=== PATIENT | female | born 1975 | race African-American/Black ===

== ENCOUNTER 2016-03-15 05:32 | Emergency (ER) | payer OTHER, MEDICAID ==
[2016-03-15 06:30] LABS: MEAN CORPUSCULAR HEMOGLOBIN 28.4 pg (27.0-33.0); MEAN CORPUSCULAR HGB CONC 32.5 g/dl (32.0-36.5); MEAN CORPUSCULAR VOLUME 87.3 fl (80.0-96.0); RED CELL DISTRIBUTION WIDTH 13.6 % (11.5-14.5); WHITE BLOOD COUNT 9.7 K/mm3 (4.0-10.0)
[2016-03-15 06:49] LABS: ALBUMIN 3.9 GM/DL (3.2-5.2); ALBUMIN/GLOBULIN RATIO 0.98 (1.00-1.93); ALKALINE PHOSPHATASE 84 U/L (45-117); ALT/SGPT 29 U/L (12-78); ANION GAP 11 MEQ/L (8-16); AST/SGOT 15 U/L (15-37); BILIRUBIN,DIRECT < 0.1 MG/DL (0.0-0.2); BILIRUBIN,TOTAL 0.2 MG/DL (0.2-1.0); BLOOD UREA NITROGEN 7 MG/DL (7-18); CALCIUM LEVEL 8.7 MG/DL (8.5-10.1); CARBON DIOXIDE LEVEL 25 MEQ/L (21-32); CHLORIDE LEVEL 109 MEQ/L (98-107); CREATININE FOR GFR 0.86 MG/DL (0.55-1.02); GLOMERULAR FILTRATION RATE > 60.0 (>58); GLUCOSE, FASTING 103 MG/DL (70-105); POTASSIUM SERUM 3.6 MEQ/L (3.5-5.1); SODIUM LEVEL 145 MEQ/L (136-145); TOTAL PROTEIN 7.9 GM/DL (6.4-8.2)
[2016-03-15] MEDS ORDERED: ONDANSETRON 4 MG ORAL DISINTEGRATING TAB (S0181) As Ordered ONE (11:53)
[2016-03-15] MEDS ORDERED: IBUPROFEN 800 MG TAB As Ordered ONE (12:38)
--- NOTE | 2016-03-15 13:29 | EDDOCDS ---
Physician Documentation [facility] Name: Indira Alfonso Age: 41 yrs Sex: Female : 1975 Arrival Date: 03/15/2016 Time: 05:32 Bed OBSERVATION Private MD: Disposition: 03/15/16 12:40 Discharged to Home/Self Care. Impression: Alcohol use, unspecified with intoxication. - Condition is Stable. - Discharge Instructions: Alcohol Intoxication. - Medication Reconciliation, Local Pharmacy Hours form. - Follow up: Referral list, As provided by PFS; When: Call to arrange an appointment. - Problem is new. - Symptoms are unchanged. Historical: - Allergies: No known drug Allergies; - Home Meds: 1. Antidepressants - unknown - PMHx: Depression; - PSHx: left shoulder surgery; right knee surgery; - Social history: No barriers to communication noted, The patient speaks fluent Slovak, Smoking status: Patient states was never smoker of tobacco. - Family history: Not pertinent. - : The pt / caregiver states he / she is not on anticoagulants. Unable to Verify Home Med List with the patient / caregiver. Note Patient anxious/crying. Poor historian . - Exposure Risk Screening:: None identified. 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 cs11 05:58 Consult PFS/PSA/Pattern Marker: Patient's case requires discussion with on-call cs11 Psychiatrist ordered. 05:58 PSA/PFS to call Nursing Supervisor Steffen House, to enter patient data on [place] Safe Act if patient cs11 involuntarily admitted or transferred for SI or HI ordered. 05:58 Confirm accurate psychiatric medication list and times of last dosage ordered. cs11 05:58 Detain Pt Until Medically/PFS Cleared ordered. cs11 05:59 Acetaminophen Level Ordered. EDMS 05:59 Basic Metabolic Profile Ordered. EDMS 05:59 Complete Blood Count Ordered. EDMS 05:59 Drug Eval Toxicology ED Only Ordered. EDMS 05:59 Ethyl Alcohol (ethanol) Ordered. EDMS 05:59 Liver Profile Ordered. EDMS 05:59 Salicylate Level Ordered. EDMS 05:59 Thyroid Stimulating Hormone Ordered. EDMS 11:29 [facility] Payment Agreement was scanned into [employer] and attached to record. jp5 11:29 Financial registration complete. jp5 11:35 REGULAR DIET PLASTIC FLYNN+DIET ordered. EDMS 11:51 Ondansetron ODT Oral Disintegrating Tablet 4 mg PO once ordered. sd1 11:52 Consult PFS/PSA/Pattern Marker complete. ca 12:28 Ibuprofen 800 mg PO once ordered. sd1 12:29 Consult PFS/PSA/Pattern Marker: Patient's case requires discussion with on-call ca Psychiatrist complete. Administered Medications: 12:01 Drug: Ondansetron ODT 4 mg [ondansetron 4 mg disintegrating tablet (1 tabs)] Route: PO; rs3 12:55 Drug: Ibuprofen 800 mg [ibuprofen 800 mg tablet (1 tabs)] Route: PO; rs3 Signatures: Dispatcher [employer] EDMO Mira Tirado MD MD sd1 Christiano Nichols, RN RN Cinthia Epperson, PSA PSA ca Sarah English,RN RN rs3 Jose Smith DO DO cs11 Gypsy Boogie,ASSISTANT SPEECH LANGUAGE PATHOLOGIST ASSISTANT SPEECH LANGUAGE PATHOLOGIST slLou Rodriguez,RN RN nn1 Glory Ivory jp5 The chart was reviewed and I authenticate all verbal orders and agree with the evaluation and treatment provided.Corrections: (The following items were deleted from the chart) 13:14 13:13 Social history Smoking status: Patient uses tobacco products, heavy tobacco rs3 smoker. rs3 Attachments: 11:29 [facility] Payment Agreement jp5 MTDD
--- NOTE | 2016-03-15 13:29 | EDDOCDS ---
Nurse's Notes [facility] Name: Indira Alfonso Age: 41 yrs Sex: Female : 1975 Arrival Date: 03/15/2016 Time: 05:32 Bed OBSERVATION Private MD: Diagnosis: Alcohol use, unspecified with intoxication Presentation: 03/15 05:34 Presenting complaint: EMS states: patient reporting suicidal ideations. Mental Health nn1 Triage Level: Level 2: The patient displays active suicidal ideations. The patient was brought to the ED for evaluation because of a legal pickup order. The patient is visibly agitated and appears to be potentially at risk. Suicide/Homicide risk assessment- The patient admits to and/or has been reported to be having suicidal ideations. Status: Patient is not a substance abuse services director or dependent. Transition of care: patient was not received from another setting of care. 05:34 Acuity: FRANCISCO Level 3 nn1 05:34 Method Of Arrival: Police Car nn1 13:19 Adult Sepsis Screening: The patient does not have new or worsening altered mentation. rs3 Patient's respiratory rate is less than 22. Systolic blood pressure is greater than 100. Patient has a qSOFA score of 0- Negative Sepsis Screen. Triage Assessment: 05:41 General: Appears Behavior is anxious, crying, uncooperative. Pain: Unable to use pain nn1 scale. Patient in distress, not answering questions. Pt Declines HIV testing. The patient is triaged at the bedside. See Assessment in Nurses Notes section of ED record. Neurological: Level of Consciousness is awake. Respiratory: Airway is patent Respiratory effort is even, unlabored, Respiratory pattern is regular. Derm: Skin is normal. 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 Antidepressants - unknown - PMHx: Depression; - PSHx: left shoulder surgery; right knee surgery; - Social history: No barriers to communication noted, The patient speaks fluent Tunisian, Smoking status: Patient states was never smoker of tobacco. - Family history: Not pertinent. - : The pt / caregiver states he / she is not on anticoagulants. Unable to Verify Home Med List with the patient / caregiver. Note Patient anxious/crying. Poor historian . - Exposure Risk Screening:: None identified. Screenin:56 Screening information is obtained from the patient. Fall risk: No risks identified. bcj Assistance ADL's: requires no assistance with activities of daily living. Abuse/DV Screen: The patient / caregiver reports he/she is: not in a situation that causes fear, pain or injury. Nutritional screening: No deficits noted. Advance Directives: Currently, there is no health care proxy. home support is adequate. Assessment: 06:07 General: Appears distressed, Behavior is anxious, crying. General: pt laying on slm stretcher appears upset crying . Neurological: Level of Consciousness is awake, alert, obeys commands. Respiratory: Airway is patent Respiratory effort is even, unlabored, Respiratory pattern is regular. 07:56 General: Appears in no apparent distress, comfortable, Behavior is cooperative. Pain: bcj Denies pain. Derm: Skin is pink, warm & dry. 09:35 General: Appears in no apparent distress, to be sleeping. Behavior is cooperative, hs1 Respirations even unlabored. Pt still on side on stretcher. Security continuing to observe. . 12:23 General: Appears in no apparent distress, cooperative with care. calm and mood rs3 appropriate. reports of nausea. attending provider made aware. ordered Zofran 4 mg ODT given. . 13:11 Reassessment: Patient appears in no apparent distress at this time. Patient denies pain rs3 at this time. Patient states feeling better. Patient states symptoms have improved. mood appropriate. . General:. Mental Health Eval: 05:44 Referral Information: Evaluation referral is generated by a police agency: [facility] on cl 9.41.. The patient was referred for evaluation because Pt was arrested earlier [facility] for "kicking in door of a residence and then refusing to leave", pt had reportedly been drinking as well, while at [facility] pt allegedly made suicidal comments, very histrionic, uncooperative. Pt continues with histrionics upon arrival to ED, crying loudly, generally uncooperative with triage process, not answering questions appropriately.. 11:42 Mental health consult is initiated at 11:42. ca Vital Signs: 06:04 BP 137 / 76; Pulse 100; Resp 20; Temp 97.8(T); Pulse Ox 98% ; Pain 10/10; slm 13:11 BP 130 / 72; Pulse 84; Resp 18; Temp 98(T); Pulse Ox 99% on R/A; Pain 0/10; rs3 Vitals: 13:13 Log In time N/A- police car arrival. rs3 ED Course: 05:33 Patient visited by Marcela Mayberry Reg. hs2 05:33 Patient moved to Waiting hs2 05:33 Patient moved to [facility] nn1 05:35 Triage Initiated nn1 05:35 Pt greeted and oriented to ED. Patient advised of names of staff involved in care, [facility] location of call mojica, wait times and NPO status. Accompanied by Law Enforcement, [facility] on , Patient has correct armband on for positive identification. Placed in psych safe attire. Bed in low position. Call light in reach. Side rails up X 1. Side rails up X2. Security observing. Property removed, inventory done, secured in belongings bag- Placed in locker 2. secure belongings bag, Secure bag Number [id number], placed in ED safe. Door closed. Noise minimized. Moved to private room. Verbal reassurance given. Warm blanket given. Pillow given. Psych Safety Check: Location: Psych Room. Visual Assessment: agitated, tearful \\T\\ this time. 05:58 Jose Smith DO is Attending Physician. cs11 05:58 Patient visited by Jose Smith DO. cs11 05:58 Patient moved to OBSERVATION cs11 06:07 Gypsy Boogie LPN is Primary Nurse. slm 06:09 Patient visited by Gypsy Boogie LPN. slm 06:09 No IV's were initiated during this patient's visit. No procedures done that require slm assistance. Labs drawn. (by ED staff). Sent per order to lab. 06:17 Patient visited by Gypsy Boogie LPN. slm 06:30 Patient visited by Boo Wright. mas 06:45 Patient visited by Boo Wright. mas 07:00 Patient visited by Boo Wright. mas 07:10 Attending Physician role handed off by Jose Smith DO sd1 07:10 Mira Tirado MD is Attending Physician. sd1 07:18 Patient visited by Andres Traore Security Aide. pjf 07:35 Patient visited by Andres Traore Security Aidpatricia. pjf 07:47 Patient visited by Andres Traore Security Aide. pjf 07:56 No apparent distress. Resting quietly. awaiting re-evaluation by ER physician. bcj 07:56 The patient / caregiver is instructed regarding the plan of care and ED course. bcj 07:59 Patient visited by Andres Traore Security Aide. pjf 07:59 Patient visited by Christiano Nichols RN. bcj 08:13 Patient visited by Andres Traore Security Aide. pjf 08:35 Patient visited by Andres Traore Security Aide. pjf 08:47 Patient visited by Andres Traore Security Aide. pjf 09:22 Patient visited by Adolfo Montgomery. jml1 09:41 Patient visited by Andres Traore Security Aide. pjf 10:06 Patient visited by Andres Traore Security Aide. pjf 10:15 Psych Safety Check: Location: Psych Room. Visual Assessment: Cooperative. pjf 10:32 Patient visited by Andres Traore Security Aide. pjf 10:48 Patient visited by Andres Traore Security Aide. pjf 11:10 Sarah English RN is Primary Nurse. rs3 11:14 Patient visited by Andres Traore Security Aide. pjf 11:29 [facility] Payment Agreement was scanned into [employer] and attached to record. jp5 11:39 Patient visited by Andres Traore Security Aide. pjf 11:49 Patient visited by Andres Traore Security Aide. pjf 12:18 Patient visited by Andres Traore Security Aide. pjf 12:40 Referral list, As provided by PFS is Referral Physician. sd1 13:27 Patient visited by Sarah English RN. rs3 Administered Medications: 12:01 Drug: Ondansetron ODT 4 mg [ondansetron 4 mg disintegrating tablet (1 tabs)] Route: PO; rs3 12:55 Drug: Ibuprofen 800 mg [ibuprofen 800 mg tablet (1 tabs)] Route: PO; rs3 Order Results: Lab Order: Acetaminophen Level; SPEC'M 03/15/16 06:06 Test: ACETAMINOPHEN LEVEL; Value: < 2.0; Range: 10.0-30.0; Abnormal: Below low normal; Units: UG/ML; Status: F Lab Order: Basic Metabolic Profile; SPEC03/15/16 06:06 Test: GLUCOSE, FASTING; Value: 103; Range: 70-105; Units: MG/DL; Status: F Test: BLOOD UREA NITROGEN; Value: 7; Range: 7-18; Units: MG/DL; Status: F Test: CREATININE FOR GFR; Value: 0.86; Range: 0.55-1.02; Units: MG/DL; Status: F Test: GLOMERULAR FILTRATION RATE; Value: > 60.0; Range: >58; Status: F Test: SODIUM LEVEL; Value: 145; Range: 136-145; Units: MEQ/L; Status: F Test: POTASSIUM SERUM; Value: 3.6; Range: 3.5-5.1; Units: MEQ/L; Status: F Test: CHLORIDE LEVEL; Value: 109; Range: 98-107; Abnormal: Above high normal; Units: MEQ/L; Status: F Test: CARBON DIOXIDE LEVEL; Value: 25; Range: 21-32; Units: MEQ/L; Status: F Test: ANION GAP; Value: 11; Range: 8-16; Units: MEQ/L; Status: F Test: CALCIUM LEVEL; Value: 8.7; Range: 8.5-10.1; Units: MG/DL; Status: F Test Note: ; Units are mL/min/1.73 m2 Chronic Kidney Disease Staging per NKF: Stage I & II GFR >=60 Normal to Mildly Decreased Stage III GFR 30-59 Moderately Decreased Stage IV GFR 15-29 Severely Decreased Stage V GFR <15 Very Little GFR Left ESRD GFR <15 on GERICARE AIDE Lab Order: Complete Blood Count; 03/15/16 06:06 Test: WHITE BLOOD COUNT; Value: 9.7; Range: 4.0-10.0; Units: K/mm3; Status: F Test: RED BLOOD COUNT; Value: 4.53; Range: 4.00-5.40; Units: M/mm3; Status: F Test: HEMOGLOBIN; Value: 12.9; Range: 12.0-16.0; Units: g/dl; Status: F Test: HEMATOCRIT; Value: 39.6; Range: 36.0-47.0; Units: %; Status: F Test: MEAN CORPUSCULAR VOLUME; Value: 87.3; Range: 80.0-96.0; Units: fl; Status: F Test: MEAN CORPUSCULAR HEMOGLOBIN; Value: 28.4; Range: 27.0-33.0; Units: pg; Status: F Test: MEAN CORPUSCULAR HGB CONC; Value: 32.5; Range: 32.0-36.5; Units: g/dl; Status: F Test: RED CELL DISTRIBUTION WIDTH; Value: 13.6; Range: 11.5-14.5; Units: %; Status: F Test: PLATELET COUNT, AUTOMATED; Value: 299; Range: 150-450; Units: k/mm3; Status: F Lab Order: Ethyl Alcohol (ethanol); 03/15/16 06:06 Test: ETHYL ALCOHOL (ETHANOL); Value: 0.150; Range: 0.000-0.010; Abnormal: Above high normal; Units: %; Status: F Lab Order: Liver Profile; 03/15/16 06:06 Test: AST/SGOT; Value: 15; Range: 15-37; Units: U/L; Status: F Test: ALT/SGPT; Value: 29; Range: 12-78; Units: U/L; Status: F Test: ALKALINE PHOSPHATASE; Value: 84; Range: 45-117; Units: U/L; Status: F Test: BILIRUBIN,TOTAL; Value: 0.2; Range: 0.2-1.0; Units: MG/DL; Status: F Test: BILIRUBIN,DIRECT; Value: < 0.1; Range: 0.0-0.2; Units: MG/DL; Status: F Test: TOTAL PROTEIN; Value: 7.9; Range: 6.4-8.2; Units: GM/DL; Status: F Test: ALBUMIN; Value: 3.9; Range: 3.2-5.2; Units: GM/DL; Status: F Test: ALBUMIN/GLOBULIN RATIO; Value: 0.98; Range: 1.00-1.93; Abnormal: Below low normal; Status: F Lab Order: Salicylate Level; SPEC 03/15/16 06:06 Test: SALICYLATE LEVEL; Value: < 1.7; Range: 5.0-30.0; Abnormal: Below low normal; Units: MG/DL; Status: F Lab Order: Thyroid Stimulating Hormone; SPEC'M 03/15/16 06:06 Test: THYROID STIMULATING HORMONE; Value: 1.520; Range: 0.358-3.740; Units: uIU/ML; Status: F Outcome: 12:40 Discharge ordered by Provider. sd1 13:12 Discharge Assessment: patient administered narcotics - no. The following High Risk rs3 Discharge criteria are identified: None. Discharged to home with family. Condition: stable. Discharge instructions given to patient, Instructed on discharge instructions, follow up and referral plans. medication usage, Demonstrated understanding of instructions, medications, Pt was receptive of discharge instructions/ teaching. No special radiology studies were completed. Property :Personal belongings accompany Pt. 13:28 Patient left the ED. rs3 Signatures: Mira Tirado MD MD sd1 Christiano Nichols, RN RN Cinthia Epperson, PSA PSA Ramon Laurent, PSA PSA cl León, Andres, Security Aide HalleSarah Tavarez RN RN rs3 Aye Lewis RN RN hs1 Boo Wright Jamie jml1 Jose Smith DO DO cs11 Gypsy Boogie,X RAY ELECTRONICS WIREMAN X RAY ELECTRONICS WIREMAN slLou Rodriguez,RN RN nn1 Glory Ivory jp5 Marcela Mayberry, Reg Reg hs2 Corrections: (The following items were deleted from the chart) 13:14 13:13 Social history Smoking status: Patient uses tobacco products, heavy tobacco rs3 smoker. rs3 MTDD
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
--- NOTE | 2016-03-17 14:29 | EDDOCDS ---
Physician Documentation [facility] Name: Indira Alfonso Age: 41 yrs Sex: Female : 1975 Arrival Date: 03/15/2016 Time: 05:32 Bed OBSERVATION Private MD: Disposition: 03/15/16 12:40 Discharged to Home/Self Care. Impression: Alcohol use, unspecified with intoxication. - Condition is Stable. - Discharge Instructions: Alcohol Intoxication. - Medication Reconciliation, Local Pharmacy Hours form. - Follow up: Referral list, As provided by PFS; When: Call to arrange an appointment. - Problem is new. - Symptoms are unchanged. Historical: - Allergies: No known drug Allergies; - Home Meds: 1. Antidepressants - unknown - PMHx: Depression; - PSHx: left shoulder surgery; right knee surgery; - Social history: No barriers to communication noted, The patient speaks fluent Urdu, Smoking status: Patient states was never smoker of tobacco. - Family history: Not pertinent. - : The pt / caregiver states he / she is not on anticoagulants. Unable to Verify Home Med List with the patient / caregiver. Note Patient anxious/crying. Poor historian . - Exposure Risk Screening:: None identified. 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 cs11 05:58 Consult PFS/PSA/Sensor Operator: Patient's case requires discussion with on-call cs11 Psychiatrist ordered. 05:58 PSA/PFS to call Nursing Grill Chef, to enter patient data on [place] Safe Act if patient cs11 involuntarily admitted or transferred for SI or HI ordered. 05:58 Confirm accurate psychiatric medication list and times of last dosage ordered. cs11 05:58 Detain Pt Until Medically/PFS Cleared ordered. cs11 05:59 Acetaminophen Level Ordered. EDMS 05:59 Basic Metabolic Profile Ordered. EDMS 05:59 Complete Blood Count Ordered. EDMS 05:59 Drug Eval Toxicology ED Only Ordered. EDMS 05:59 Ethyl Alcohol (ethanol) Ordered. EDMS 05:59 Liver Profile Ordered. EDMS 05:59 Salicylate Level Ordered. EDMS 05:59 Thyroid Stimulating Hormone Ordered. EDMS 11:29 [facility] Payment Agreement was scanned into [employer] and attached to record. jp5 11:29 Financial registration complete. jp5 11:35 REGULAR DIET PLASTIC FLYNN+DIET ordered. EDMS 11:51 Ondansetron ODT Oral Disintegrating Tablet 4 mg PO once ordered. sd1 11:52 Consult PFS/PSA/Sensor Operator complete. ca 12:28 Ibuprofen 800 mg PO once ordered. sd1 12:29 Consult PFS/PSA/Sensor Operator: Patient's case requires discussion with on-call ca Psychiatrist complete. 17:49 T-Sheet-- Draft Copy was scanned into [employer] and attached to record. klr Administered Medications: 12:01 Drug: Ondansetron ODT 4 mg [ondansetron 4 mg disintegrating tablet (1 tabs)] Route: PO; rs3 12:55 Drug: Ibuprofen 800 mg [ibuprofen 800 mg tablet (1 tabs)] Route: PO; rs3 Signatures: Dispatcher [employer] EDMS Mira Tirado MD MD sd1 Christiano Nichols, RN RN Cinthia Epperson PSA PSA ca Sarah English,RN RN rs3 Jose Smith DO DO cs11 Gypsy Boogie LPN RADIATION PROTECTION SPECIALIST slLou Rodriguez RN RN nn1 Glory Ivory jp5 Madison Escalona klr The chart was reviewed and I authenticate all verbal orders and agree with the evaluation and treatment provided.Corrections: (The following items were deleted from the chart) 13:14 13:13 Social history Smoking status: Patient uses tobacco products, heavy tobacco rs3 smoker. rs3 Attachments: 11:29 [facility] Payment Agreement jp5 17:49 T-Sheet-- Draft Copy klr Chart Complete MTDD
--- NOTE | 2016-03-17 14:29 | EDDOCDS ---
Physician Documentation [facility] Name: Indira Alfonso Age: 41 yrs Sex: Female : 1975 Arrival Date: 03/15/2016 Time: 05:32 Bed OBSERVATION Private MD: Disposition: 03/15/16 12:40 Discharged to Home/Self Care. Impression: Alcohol use, unspecified with intoxication. - Condition is Stable. - Discharge Instructions: Alcohol Intoxication. - Medication Reconciliation, Local Pharmacy Hours form. - Follow up: Referral list, As provided by PFS; When: Call to arrange an appointment. - Problem is new. - Symptoms are unchanged. Historical: - Allergies: No known drug Allergies; - Home Meds: 1. Antidepressants - unknown - PMHx: Depression; - PSHx: left shoulder surgery; right knee surgery; - Social history: No barriers to communication noted, The patient speaks fluent Slovak, Smoking status: Patient states was never smoker of tobacco. - Family history: Not pertinent. - : The pt / caregiver states he / she is not on anticoagulants. Unable to Verify Home Med List with the patient / caregiver. Note Patient anxious/crying. Poor historian . - Exposure Risk Screening:: None identified. 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 cs11 05:58 Consult PFS/PSA/Nuclear Officer: Patient's case requires discussion with on-call cs11 Psychiatrist ordered. 05:58 PSA/PFS to call Nursing Para Professional, to enter patient data on [place] Safe [place] if patient cs11 involuntarily admitted or transferred for SI or HI ordered. 05:58 Confirm accurate psychiatric medication list and times of last dosage ordered. cs11 05:58 Detain Pt Until Medically/PFS Cleared ordered. cs11 05:59 Acetaminophen Level Ordered. EDMS 05:59 Basic Metabolic Profile Ordered. EDMS 05:59 Complete Blood Count Ordered. EDMS 05:59 Drug Eval Toxicology ED Only Ordered. EDMS 05:59 Ethyl Alcohol (ethanol) Ordered. EDMS 05:59 Liver Profile Ordered. EDMS 05:59 Salicylate Level Ordered. EDMS 05:59 Thyroid Stimulating Hormone Ordered. EDMS 11:29 [facility] Payment Agreement was scanned into [employer] and attached to record. jp5 11:29 Financial registration complete. jp5 11:35 REGULAR DIET PLASTIC FLYNN+DIET ordered. EDMS 11:51 Ondansetron ODT Oral Disintegrating Tablet 4 mg PO once ordered. sd1 11:52 Consult PFS/PSA/Nuclear Officer complete. ca 12:28 Ibuprofen 800 mg PO once ordered. sd1 12:29 Consult PFS/PSA/Nuclear Officer: Patient's case requires discussion with on-call ca Psychiatrist complete. 17:49 T-Sheet-- Draft Copy was scanned into [employer] and attached to record. klr Administered Medications: 12:01 Drug: Ondansetron ODT 4 mg [ondansetron 4 mg disintegrating tablet (1 tabs)] Route: PO; rs3 12:55 Drug: Ibuprofen 800 mg [ibuprofen 800 mg tablet (1 tabs)] Route: PO; rs3 Signatures: Dispatcher [employer] EDMS Mira Tirado MD MD sd1 Christiano Nichols, RN RN Cinthia Epperson PSA PSA ca Sarah English,RN RN rs3 Jose Smith DO DO cs11 Gypsy Boogie LPN TRADE RECRUITER slLou Rodriguez RN RN nn1 Glory Ivory jp5 Madison Escalona klr The chart was reviewed and I authenticate all verbal orders and agree with the evaluation and treatment provided.Corrections: (The following items were deleted from the chart) 13:14 13:13 Social history Smoking status: Patient uses tobacco products, heavy tobacco rs3 smoker. rs3 Attachments: 11:29 [facility] Payment Agreement jp5 17:49 T-Sheet-- Draft Copy klr Chart Complete MTDD
== END 2016-03-15 13:38 | disposition home or self-care (01) ==
LOC: M ED 05:32
DX: F10.129 Alcohol abuse with intoxication, unspecified (principal); F32.9 Major depressive disorder, single episode, unspecified
CPT/HCPCS: 36415; 80048; 80076; 84443; 85027; 99284; G0480

== ENCOUNTER → 2016-08-06 | Outpatient (REF) | payer MEDICAID ==
[2016-08-06 17:54] LABS: BASO # 0.1 K/mm3 (0.0-0.2); BASO % 0.7 % (0.0-1.0); EOS # 0.1 K/mm3 (0.0-0.50); EOS % 1.3 % (0.0-3.0); LARGE UNSTAINED CELL # 0.1 K/mm3 (0.0-0.4); LARGE UNSTAINED CELL % 1.4 % (0.0-4.0); LYMPH # 3.1 K/mm3 (1.5-4.5); LYMPH % 35.3 % (24.0-44.0); MEAN CORPUSCULAR HEMOGLOBIN 28.6 pg (27.0-33.0); MEAN CORPUSCULAR HGB CONC 32.3 g/dl (32.0-36.5); MEAN CORPUSCULAR VOLUME 88.5 fl (80.0-96.0); MONO # 0.4 K/mm3 (0.0-0.8); MONO % 4.1 % (0.0-5.0); NEUTROPHILS # 4.9 K/mm3 (1.8-7.7); NEUTROPHILS % 57.2 % (36.0-66.0); PLATELET COUNT, AUTOMATED 279 k/mm3 (150-450); WHITE BLOOD COUNT 8.5 K/mm3 (4.0-10.0)
[2016-08-06 19:02] LABS: ALBUMIN 3.7 GM/DL (3.2-5.2); ALBUMIN/GLOBULIN RATIO 0.86 (1.00-1.93); ALKALINE PHOSPHATASE 94 U/L (45-117); ALT/SGPT 29 U/L (12-78); ANION GAP 6 MEQ/L (8-16); AST/SGOT 13 U/L (15-37); BILIRUBIN,TOTAL 0.3 MG/DL (0.2-1.0); BLOOD UREA NITROGEN 9 MG/DL (7-18); CALCIUM LEVEL 8.5 MG/DL (8.5-10.1); CARBON DIOXIDE LEVEL 27 MEQ/L (21-32); CHLORIDE LEVEL 105 MEQ/L (98-107); CHOLESTEROL LEVEL 246 MG/DL (<200); CREATININE FOR GFR 0.85 MG/DL (0.55-1.02); GLOMERULAR FILTRATION RATE > 60.0 (>58); GLUCOSE, FASTING 85 MG/DL (70-105); POTASSIUM SERUM 3.9 MEQ/L (3.5-5.1); SODIUM LEVEL 138 MEQ/L (136-145); TRIGLYCERIDES LEVEL 102 MG/DL (<150)
== END ==
LOC: M LAB REF 16:41
PROVIDERS: ATTEND Family Medicine Addiction Medicine
DX: Z00.01 Encounter for general adult medical examination with abnormal findings (principal); Z11.3 Encounter for screening for infections with a predominantly sexual mode of transmission

== ENCOUNTER → 2016-08-11 | Outpatient (REF) | payer MEDICAID | LOC: M LAB REF 16:35 | PROVIDERS: ATTEND Family Medicine Addiction Medicine | DX: E55.9 Vitamin D deficiency, unspecified (principal) ==